=== PATIENT | female | born 1985 | race Caucasian/White ===

== ENCOUNTER 2021-11-03 08:22 | Outpatient (CLI) | payer BC | END 2021-11-03 08:23 | disposition home or self-care (01) | LOC: CSHMRI 08:22 | PROVIDERS: ATTEND Orthopaedic Surgery | DX: M23.91 Unspecified internal derangement of right knee (principal); M94.8X6 Other specified disorders of cartilage, lower leg; M71.21 Synovial cyst of popliteal space [Baker], right knee ==